=== PATIENT | female | born 1995 | race Caucasian/White ===

== ENCOUNTER 2019-03-10 05:32 | Emergency (ER) | payer OTHER ==
[~2019-03-10] VITALS: Ht 160 cm; Wt 54.0 kg
[~2019-03-10 05:32] MED LIST: BIRTH CONTROL; DOCU100 PO; Flagyl500 MG PO; HYDR1TAB94 PO; IBUP600 PO; IBUP800 PO; METO25ER PO; Percocet 5-3251 EACH PO; Prednisone20 MG PO; Protonix40 MG PO; SIME80CH PO; Sprintec1 EACH PO; TRAM50 PO
[2019-03-10] MEDS ORDERED: METOPROLOL PO (05:57)
[2019-03-10 06:01] LABS: BASOPHILS ABSOLUTE AUTO 0.04 K/mm3 (0.00-0.23); BASOPHILS PERCENT AUTO 1 % (0-2); EOSINOPHILS ABSOLUTE AUTO 0.09 K/mm3 (0.00-0.68); EOSINOPHILS PERCENT AUTO 1 % (0-6); Hematocrit 43.5 % (33.0-51.0); Hemoglobin 14.6 g/dL (11.5-16.0); IMMATURE GRAN ABSOLUTE AUTO 0.02 K/mm3 (0.00-0.10); IMMATURE GRAN PERCENT AUTO 0 % (0-1); LYMPHOCYTES ABSOLUTE AUTO 2.56 K/mm3 (0.84-5.20); LYMPHOCYTES PERCENT AUTO 36 % (21-46); MONOCYTES ABSOLUTE AUTO 0.55 K/mm3 (0.16-1.47); MONOCYTES PERCENT AUTO 8 % (4-13); Mean Corpuscular HGB 30.3 pg (26.0-34.0); Mean Corpuscular HGB Conc 33.6 g/dL (31.5-36.5); Mean Corpuscular Volume 90 fL (80-100); NEUTROPHILS ABSOLUTE AUTO 3.78 K/mm3 (1.96-9.15); NEUTROPHILS PERCENT AUTO 54 % (41-73); Platelet Count 177 K/mm3 (150-400); RDW Coefficient Variation 11.9 % (11.7-14.2); RDW Standard Deviation 39.2 fL (35.1-46.3); Red Blood Cell Count 4.82 M/mm3 (3.80-5.20); White Blood Cell Count 7.04 K/mm3 (4.00-11.30)
[2019-03-10 06:18] LABS: Alanine Aminotransfer (ALT/SGP 32 U/L (12-78); Albumin, Blood 4.1 g/dL (3.4-5.0); Albumin/Globulin Ratio 1.2 (0.8-1.8); Alk Phos 60 U/L (50-136); Anion Gap 8 mmol/L (6-16); Aspartate Aminotrans (AST/SGOT 32 U/L (12-37); Bilirubin, Total 1.4 mg/dL (0.1-1.0); Blood Urea Nitrogen 8 mg/dL (8-24); CO2, Blood 25 mmol/L (21-32); Calcium, Blood 9.2 mg/dL (8.5-10.1); Chloride, Blood 108 mmol/L (98-108); Creatinine, Blood 0.67 mg/dL (0.40-1.00); Globulin, Blood 3.5 g/dL (2.2-4.0); Glomerular Filtration Rate >60 (60-); Glucose, Blood 127 mg/dL (70-99); Potassium, Blood 3.7 mmol/L (3.5-5.5); Sodium, Blood 141 mmol/L (136-145); Total Protein, Blood 7.6 g/dL (6.4-8.2)
[2019-03-10 06:46] LABS: Source, Urine Clean Catch
[2019-03-10 07:03] LABS: Appearance, Urine Clear (Clear); Bilirubin, Urine Neg (Neg); Blood, Urine Neg (Neg); Color, Urine Yellow (P-Yellow); Glucose Qualitative, Urine Neg (Neg); Ketones, Urine Neg (Neg); Leukocyte Esterase, Urine Neg (Neg); Nitrite, Urine Neg (Neg); Protein, Urine Neg (Neg); Urobilinogen, Urine NORM (Normal)
[2019-03-10] MEDS ORDERED: Percocet 5-3251 EACH PO (09:05)
[2019-04-21] MEDS ORDERED: OXYC5 PO (09:48)
== END 2019-03-10 09:19 | disposition home or self-care (01) ==
LOC: ER 05:32
PROVIDERS: Emergency Medicine
DX: R10.2 Pelvic and perineal pain (principal); I10 Essential (primary) hypertension; I49.9 Cardiac arrhythmia, unspecified; Z90.710 Acquired absence of both cervix and uterus; Z79.899 Other long term (current) drug therapy; Z88.8 Allergy status to other drugs, medicaments and biological substances
CPT/HCPCS: 36415; 72193; 76830; 76856; 80053; 81003; 85025; 96361; 96374-59; 96375; 96376; 99284-25; J1170; J2405; J7030; Q9967

== ENCOUNTER 2019-04-25 09:58 | Day surgery (SDC) | payer BC, OTHER ==
[~2019-04-25] VITALS: Ht 160 cm; Wt 51.7 kg
[~2019-04-25 09:58] MED LIST changes: +METOPROLOL PO; +OXYC5 PO
--- NOTE | 2019-04-25 10:24 | NUR ---
Ambulatory in Day Surgery History, Chart, Medications and Allergies reviewed before start of procedure.Lungs clear T/O to Auscultation. Patient confirms NPO status and agrees with scheduled surgery. Patient reports completing Chlorhexadine shower X2 prior to admission to hospital.Surgical site prepped with 2% Chlorhexidine cloth wipe. Patient States Post-Procedure ride home has been arranged.
--- NOTE | 2019-04-25 15:30 | NUR ---
Patient up to Ambulate independently. Gait steady. STERI STRIP ABOVE UMBILICUS WITH SMALL AMOUNT OF SANGINOUS DRAINAGE-BANDAIDE PLACED. Discharge instructions reviewed with patient. Patient verbalizes understanding. Copy given to patient to take home-DISCHARGE INSTRUCTIONS GIVEN BY ARTURO PINA RN. PT VERBALIZED AND DEMONSTRATED UNDERSTANGING OF INSTRUCTIONS. PT DIACHARGED TO HOME, OUT VIA WHEELCHAIR WITH BELONGINGS, RX, AND DISHARGE INSTRUCTIONS ON HAND.
--- NOTE | 2019-04-26 14:00 | NUR ---
04/26/19 1400 Eusebia Quigley VERIFICATIONS: EDIT CHART.
== END 2019-04-25 15:30 | disposition home or self-care (01) ==
LOC: ORSCMMR 09:58 → ORD 11:30 → ORSCMMR 11:30
PROVIDERS: Obstetrics & Gynecology
PROC: 0UT04ZZ Resection of Right Ovary, Percutaneous Endoscopic Approach (ICD-10-PCS; principal; 2019-04-25 11:30)
DX: N80.3 Endometriosis of pelvic peritoneum (principal); N83.201 Unspecified ovarian cyst, right side; R10.2 Pelvic and perineal pain; K66.0 Peritoneal adhesions (postprocedural) (postinfection); Z79.899 Other long term (current) drug therapy
CPT/HCPCS: 88305; A9270-GY; J0461; J1100; J1885; J2250; J2370; J2405; J2704; J2710; J3010; J7120

== ENCOUNTER 2020-07-24 14:43 | Emergency (ER) | payer OTHER ==
[~2020-07-24] VITALS: Ht 160 cm; Wt 52.2 kg
[~2020-07-24 14:43] MED LIST changes: -METO25ER PO
[2020-07-24] MEDS ORDERED: GLYBURIDE-METF1 EACH PO (15:05)
[2020-07-24] MEDS ORDERED: SEMGLEE100 UNIT/1 SC (15:06)
[2020-07-24 15:08] LABS: BASOPHILS ABSOLUTE AUTO 0.05 K/mm3 (0.00-0.23); BASOPHILS PERCENT AUTO 1 % (0-2); EOSINOPHILS ABSOLUTE AUTO 0.49 K/mm3 (0.00-0.68); EOSINOPHILS PERCENT AUTO 8 % (0-6); Hematocrit 42.3 % (33.0-51.0); Hemoglobin 13.8 g/dL (11.5-16.0); IMMATURE GRAN ABSOLUTE AUTO 0.02 K/mm3 (0.00-0.10); IMMATURE GRAN PERCENT AUTO 0 % (0-1); LYMPHOCYTES ABSOLUTE AUTO 1.58 K/mm3 (0.84-5.20); LYMPHOCYTES PERCENT AUTO 26 % (21-46); MONOCYTES ABSOLUTE AUTO 0.47 K/mm3 (0.16-1.47); MONOCYTES PERCENT AUTO 8 % (4-13); Mean Corpuscular HGB 29.1 pg (26.0-34.0); Mean Corpuscular HGB Conc 32.6 g/dL (31.5-36.5); Mean Corpuscular Volume 89 fL (80-100); NEUTROPHILS PERCENT AUTO 57 % (41-73); Platelet Count 188 K/mm3 (150-400); RDW Coefficient Variation 11.9 % (11.7-14.2); RDW Standard Deviation 38.8 fL (35.1-46.3); Red Blood Cell Count 4.75 M/mm3 (3.80-5.20); White Blood Cell Count 6.01 K/mm3 (4.00-11.30)
[2020-07-24 15:19] LABS: Base Excess Venous -0.4 mmol/L; Bicarbonate Venous 23.6 mmol/L (24.0-30.0); PCO2 Venous 42.2 mmHg (38-42); PO2 Venous 46.2 mmHg (38-42); pH Blood Venous 7.38 (7.34-7.37)
[2020-07-24 15:31] LABS: Alanine Aminotransfer (ALT/SGP 35 U/L (12-78); Albumin, Blood 3.7 g/dL (3.4-5.0); Albumin/Globulin Ratio 1.1 (0.8-1.8); Alk Phos 68 U/L (50-136); Anion Gap 8 mmol/L (6-16); Aspartate Aminotrans (AST/SGOT 39 U/L (12-37); Bilirubin, Total 1.1 mg/dL (0.1-1.0); Blood Urea Nitrogen 15 mg/dL (8-24); Bun/Creatinine Ratio 30.1 (12.0-20.0); CO2, Blood 25 mmol/L (21-32); Calcium, Blood 8.6 mg/dL (8.5-10.1); Chloride, Blood 100 mmol/L (98-108); Globulin, Blood 3.4 g/dL (2.2-4.0); Glomerular Filtration Rate >60 (60-); Glucose, Blood 543 mg/dL (70-99); Potassium, Blood 3.8 mmol/L (3.5-5.5); Sodium, Blood 133 mmol/L (136-145); Total Protein, Blood 7.1 g/dL (6.4-8.2)
[2020-07-24] MEDS ORDERED: METO25ER PO (15:44)
[2020-07-24] MEDS ORDERED: ESCI20 PO (15:45)
[2020-07-24] MEDS ORDERED: PANT40 PO (15:45)
[2020-07-24 15:48] LABS: Source, Urine Clean Catch
[2020-07-24 16:15] LABS: Appearance, Urine Clear (Clear); Bilirubin, Urine Neg (Neg); Blood, Urine Neg (Neg); Glucose Qualitative, Urine 4+ (Neg); Ketones, Urine Neg (Neg); Leukocyte Esterase, Urine Neg (Neg); Nitrite, Urine Neg (Neg); Protein, Urine Neg (Neg); Urobilinogen, Urine NORM (Normal)
[2020-07-24 16:28] LABS: Color, Urine Pale Yellow (P-Yellow)
== END 2020-07-24 20:26 | disposition home or self-care (01) ==
LOC: ER 14:43
PROVIDERS: Physician Assistant
DX: E10.65 Type 1 diabetes mellitus with hyperglycemia (principal); I10 Essential (primary) hypertension; Z88.8 Allergy status to other drugs, medicaments and biological substances; Z79.899 Other long term (current) drug therapy
CPT/HCPCS: 36415; 71046; 74177; 76705; 80053; 81003; 82010; 82803; 82947; 85025; 93005; 93010; 96361; 96374-59; 96375; 99284-25; J1200; J1815; J2405; J2765; J7030; Q9967

== ENCOUNTER 2020-09-11 17:54 | Emergency (ER) | payer OTHER ==
[~2020-09-11] VITALS: Ht 160 cm; Wt 54.0 kg
[~2020-09-11 17:54] MED LIST changes: +ESCI20 PO; +GLYBURIDE-METF1 EACH PO; +METO25ER PO; +PANT40 PO; +SEMGLEE100 UNIT/1 SC
[2020-09-11 19:12] LABS: BASOPHILS ABSOLUTE AUTO 0.04 K/mm3 (0.00-0.23); BASOPHILS PERCENT AUTO 1 % (0-2); EOSINOPHILS ABSOLUTE AUTO 0.11 K/mm3 (0.00-0.68); EOSINOPHILS PERCENT AUTO 2 % (0-6); Hematocrit 42.3 % (33.0-51.0); Hemoglobin 13.8 g/dL (11.5-16.0); IMMATURE GRAN ABSOLUTE AUTO 0.02 K/mm3 (0.00-0.10); IMMATURE GRAN PERCENT AUTO 0 % (0-1); LYMPHOCYTES ABSOLUTE AUTO 2.62 K/mm3 (0.84-5.20); LYMPHOCYTES PERCENT AUTO 37 % (21-46); MONOCYTES ABSOLUTE AUTO 0.45 K/mm3 (0.16-1.47); MONOCYTES PERCENT AUTO 6 % (4-13); Mean Corpuscular HGB 29.6 pg (26.0-34.0); Mean Corpuscular HGB Conc 32.6 g/dL (31.5-36.5); Mean Corpuscular Volume 91 fL (80-100); Mean Platelet Volume 10.8 fL (9.1-12.4); NEUTROPHILS ABSOLUTE AUTO 3.89 K/mm3 (1.96-9.15); NEUTROPHILS PERCENT AUTO 55 % (41-73); Platelet Count 208 K/mm3 (150-400); RDW Coefficient Variation 11.8 % (11.7-14.2); Red Blood Cell Count 4.66 M/mm3 (3.80-5.20); White Blood Cell Count 7.13 K/mm3 (4.00-11.30)
[2020-09-11 19:36] LABS: Alanine Aminotransfer (ALT/SGP 41 U/L (12-78); Albumin, Blood 3.9 g/dL (3.4-5.0); Albumin/Globulin Ratio 1.1 (0.8-1.8); Alk Phos 61 U/L (50-136); Anion Gap 5 mmol/L (6-16); Aspartate Aminotrans (AST/SGOT 27 U/L (12-37); Bilirubin, Total 0.9 mg/dL (0.1-1.0); Blood Urea Nitrogen 18 mg/dL (8-24); Bun/Creatinine Ratio 22.8 (12.0-20.0); CO2, Blood 28 mmol/L (21-32); Chloride, Blood 108 mmol/L (98-108); Creatinine, Blood 0.79 mg/dL (0.40-1.00); Globulin, Blood 3.7 g/dL (2.2-4.0); Glomerular Filtration Rate >60 (60-); Glucose, Blood 90 mg/dL (70-99); Potassium, Blood 3.5 mmol/L (3.5-5.5); Sodium, Blood 141 mmol/L (136-145); Total Protein, Blood 7.6 g/dL (6.4-8.2)
== END 2020-09-11 22:18 | disposition left against medical advice (07) ==
LOC: ER 17:54
PROVIDERS: Physician Assistant
DX: E11.9 Type 2 diabetes mellitus without complications (principal)
CPT/HCPCS: 36415; 80053; 82947; 85025; 99283; J1815

== ENCOUNTER → 2020-10-25 | Outpatient (CLI) | payer OTHER ==
[2020-10-25 15:39] LABS: Alanine Aminotransfer (ALT/SGP 39 U/L (12-78); Albumin/Globulin Ratio 1.2 (0.8-1.8); Alk Phos 53 U/L (50-136); Anion Gap 3 mmol/L (6-16); Aspartate Aminotrans (AST/SGOT 21 U/L (12-37); Bilirubin, Total 1.3 mg/dL (0.1-1.0); Blood Urea Nitrogen 14 mg/dL (8-24); Bun/Creatinine Ratio 21.6 (12.0-20.0); CO2, Blood 29 mmol/L (21-32); Chloride, Blood 109 mmol/L (98-108); Creatinine, Blood 0.65 mg/dL (0.40-1.00); Globulin, Blood 3.4 g/dL (2.2-4.0); Glomerular Filtration Rate >60 (60-); Glucose, Blood 71 mg/dL (70-99); Potassium, Blood 3.7 mmol/L (3.5-5.5); Sodium, Blood 141 mmol/L (136-145); Total Protein, Blood 7.4 g/dL (6.4-8.2)
== END | disposition home or self-care (01) ==
LOC: LAB 13:05 → LAB SHORT 13:05
PROVIDERS: Family Medicine
DX: E11.9 Type 2 diabetes mellitus without complications (principal)
CPT/HCPCS: 80053; 83036

== ENCOUNTER → 2020-11-14 | Outpatient (CLI) | payer OTHER | END | disposition home or self-care (01) | LOC: LAB SHORT 10:39 | DX: R53.83 Other fatigue (principal) | CPT/HCPCS: 84443 ==

== ENCOUNTER 2020-11-28 08:19 | Emergency (ER) | payer OTHER ==
[~2020-11-28] VITALS: Ht 160 cm; Wt 54.4 kg
[2020-11-28 09:23] LABS: BASOPHILS ABSOLUTE AUTO 0.03 K/mm3 (0.00-0.23); BASOPHILS PERCENT AUTO 1 % (0-2); EOSINOPHILS ABSOLUTE AUTO 0.09 K/mm3 (0.00-0.68); EOSINOPHILS PERCENT AUTO 2 % (0-6); Hematocrit 44.1 % (33.0-51.0); Hemoglobin 14.3 g/dL (11.5-16.0); IMMATURE GRAN PERCENT AUTO 0 % (0-1); LYMPHOCYTES ABSOLUTE AUTO 1.92 K/mm3 (0.84-5.20); LYMPHOCYTES PERCENT AUTO 42 % (21-46); MONOCYTES ABSOLUTE AUTO 0.32 K/mm3 (0.16-1.47); MONOCYTES PERCENT AUTO 7 % (4-13); Mean Corpuscular HGB 28.6 pg (26.0-34.0); Mean Corpuscular HGB Conc 32.4 g/dL (31.5-36.5); Mean Corpuscular Volume 88 fL (80-100); Mean Platelet Volume 11.5 fL (9.1-12.4); NEUTROPHILS ABSOLUTE AUTO 2.26 K/mm3 (1.96-9.15); NEUTROPHILS PERCENT AUTO 49 % (41-73); Platelet Count 172 K/mm3 (150-400); RDW Coefficient Variation 11.8 % (11.7-14.2); White Blood Cell Count 4.62 K/mm3 (4.00-11.30)
[2020-11-28 09:48] LABS: Alanine Aminotransfer (ALT/SGP 32 U/L (12-78); Albumin, Blood 3.9 g/dL (3.4-5.0); Albumin/Globulin Ratio 1.1 (0.8-1.8); Alk Phos 53 U/L (50-136); Anion Gap 4 mmol/L (6-16); Aspartate Aminotrans (AST/SGOT 19 U/L (12-37); Bilirubin, Total 1.4 mg/dL (0.1-1.0); Blood Urea Nitrogen 13 mg/dL (8-24); Bun/Creatinine Ratio 18.4 (12.0-20.0); CO2, Blood 28 mmol/L (21-32); Calcium, Blood 8.7 mg/dL (8.5-10.1); Chloride, Blood 107 mmol/L (98-108); Creatinine, Blood 0.71 mg/dL (0.40-1.00); Globulin, Blood 3.5 g/dL (2.2-4.0); Glomerular Filtration Rate >60 (60-); Glucose, Blood 165 mg/dL (70-99); Sodium, Blood 139 mmol/L (136-145); Total Protein, Blood 7.4 g/dL (6.4-8.2)
== END 2020-11-28 10:25 | disposition home or self-care (01) ==
LOC: ER 08:19
PROVIDERS: Emergency Medicine
DX: B34.9 Viral infection, unspecified (principal); I10 Essential (primary) hypertension; E11.9 Type 2 diabetes mellitus without complications; Z79.4 Long term (current) use of insulin; Z79.899 Other long term (current) drug therapy
CPT/HCPCS: 36415; 80053; 82947; 83690; 85025; 99283

== ENCOUNTER → 2021-01-18 | Outpatient (CLI) | payer OTHER ==
[2021-01-19 14:19] LABS: Candida species (DNA Probe) Negative (NEGATIVE); G. vaginalis (DNA Probe) Positive (NEGATIVE); T. vaginalis (DNA Probe) Negative (NEGATIVE)
== END | disposition home or self-care (01) ==
LOC: LAB SHORT 11:15 → LAB 11:15
PROVIDERS: Obstetrics & Gynecology
DX: R10.2 Pelvic and perineal pain (principal)
CPT/HCPCS: 87480; 87510; 87660

== ENCOUNTER → 2022-02-26 | Outpatient (CLI) | payer OTHER | END | disposition home or self-care (01) | LOC: LAB 11:31 → LAB SHORT 11:31 | DX: N39.0 Urinary tract infection, site not specified (principal) | CPT/HCPCS: 87086 ==

== ENCOUNTER 2022-05-25 07:21 | Emergency (ER) | payer OTHER ==
[~2022-05-25] VITALS: Ht 160 cm; Wt 54.4 kg
[2022-05-25] MEDS ORDERED: BUPR75 (08:52)
[2022-05-25] MEDS ORDERED: NOVOLOG100 UNIT/3 SC (08:52)
[2022-05-25 09:33] LABS: Source, Urine Clean Catch
[2022-05-25 09:46] LABS: BASOPHILS ABSOLUTE AUTO 0.02 K/mm3 (0.00-0.23); BASOPHILS PERCENT AUTO 1 % (0-2); EOSINOPHILS ABSOLUTE AUTO 0.01 K/mm3 (0.00-0.68); EOSINOPHILS PERCENT AUTO 0 % (0-6); Hematocrit 46.8 % (33.0-51.0); Hemoglobin 15.6 g/dL (11.5-16.0); IMMATURE GRAN ABSOLUTE AUTO 0.01 K/mm3 (0.00-0.10); IMMATURE GRAN PERCENT AUTO 0 % (0-1); LYMPHOCYTES ABSOLUTE AUTO 1.02 K/mm3 (0.84-5.20); LYMPHOCYTES PERCENT AUTO 24 % (21-46); MONOCYTES ABSOLUTE AUTO 0.59 K/mm3 (0.16-1.47); MONOCYTES PERCENT AUTO 14 % (4-13); Mean Corpuscular HGB 28.7 pg (26.0-34.0); Mean Corpuscular HGB Conc 33.3 g/dL (31.5-36.5); Mean Corpuscular Volume 86 fL (80-100); Mean Platelet Volume 11.2 fL (9.1-12.4); NEUTROPHILS ABSOLUTE AUTO 2.61 K/mm3 (1.96-9.15); NEUTROPHILS PERCENT AUTO 61 % (41-73); Platelet Count 127 K/mm3 (150-400); RDW Standard Deviation 37.9 fL (35.1-46.3); Red Blood Cell Count 5.43 M/mm3 (3.80-5.20); White Blood Cell Count 4.26 K/mm3 (4.00-11.30)
[2022-05-25 09:55] LABS: Bilirubin, Urine Neg (Neg); Blood, Urine Neg (Neg); Glucose Qualitative, Urine 4+ (Neg); Ketones, Urine 4+ (Neg); Leukocyte Esterase, Urine Neg (Neg); Nitrite, Urine Neg (Neg); Protein, Urine 1+ (Neg); Urobilinogen, Urine NORM (Normal)
[2022-05-25 10:00] LABS: Appearance, Urine Clear (Clear); Color, Urine Yellow (P-Yellow)
[2022-05-25 10:11] LABS: Albumin, Blood 3.9 g/dL (3.4-5.0); Bun/Creatinine Ratio 19.7 (12.0-20.0); Calcium, Blood 8.8 mg/dL (8.5-10.1); Creatinine, Blood 0.71 mg/dL (0.40-1.00); Globulin, Blood 3.9 g/dL (2.2-4.0); Potassium, Blood 3.8 mmol/L (3.5-5.5); Total Protein, Blood 7.8 g/dL (6.4-8.2)
[2022-05-25 12:01] LABS: Influenza B, PCR NEGATIVE (NEGATIVE); Resp Syncytial Virus, PCR NEGATIVE (NEGATIVE); SARS-Cov-2 (COVID-19) PCR, MMC NEGATIVE (NEGATIVE)
[2022-05-25 12:05] LABS: Influenza A, PCR POSITIVE (NEGATIVE)
[2022-05-25] MEDS ORDERED: Tylenol W/Code120 ML PO (13:15)
[2022-05-25] MEDS ORDERED: ONDA4ODT MM (13:15)
== END 2022-05-25 13:50 | disposition home or self-care (01) ==
LOC: ER 07:21
PROVIDERS: Physician Assistant
DX: J10.1 Influenza due to other identified influenza virus with other respiratory manifestations (principal); I10 Essential (primary) hypertension; E10.9 Type 1 diabetes mellitus without complications; Z88.8 Allergy status to other drugs, medicaments and biological substances; Z79.4 Long term (current) use of insulin; Z20.822 Contact with and (suspected) exposure to COVID-19
CPT/HCPCS: 0241U; 36415; 71046; 80053; 82947; 83690; 85025; A9270; J1815; J1885; J2405; J7030; J7120

== ENCOUNTER 2023-05-24 00:14 | Emergency (ER) | payer OTHER ==
[~2023-05-24] VITALS: Ht 160 cm; Wt 47.2 kg
[~2023-05-24 00:14] MED LIST changes: +Acetaminophen325 M1 PO; +BUPR75; +FLUT.05NI; +NOVOLOG100 UNIT/3 SC; +ONDA4ODT MM; +Tylenol W/Code120 ML PO
[2023-05-24 00:47] LABS: Source, Urine Clean Catch
[2023-05-24 00:51] LABS: Bilirubin, Urine Neg (Neg); Blood, Urine Neg (Neg); Glucose Qualitative, Urine 4+ (Neg); Ketones, Urine 3+ (Neg); Leukocyte Esterase, Urine 3+ (Neg); Nitrite, Urine Neg (Neg); Protein, Urine Neg (Neg); Urobilinogen, Urine NORM (Normal); pH, Urine 6.5 (5.0-8.0)
[2023-05-24 01:14] LABS: Appearance, Urine Hazy (Clear); Color, Urine Pale Yellow (P-Yellow)
[2023-05-24 01:15] LABS: Bacteria Few /hpf; Red Blood Cells, Urine 0-2 /hpf (0-2); Squamous Epithelial Cells Few /hpf (Few)
[2023-05-24 05:07] LABS: Candida species (DNA Probe) Negative (NEGATIVE); G. vaginalis (DNA Probe) Positive (NEGATIVE); T. vaginalis (DNA Probe) Negative (NEGATIVE)
[2023-05-24 05:12] VITALS: BP 113/65
[2023-05-24] MEDS ORDERED: CEPH500 PO (05:41)
[2023-05-24] MEDS ORDERED: METR500 PO (05:41)
[2023-05-25 23:09] LABS: CHLAMYDIA TRACHOMATIS, NAA Negative (Negative)
== END 2023-05-24 05:58 | disposition home or self-care (01) ==
LOC: ER 00:14
PROVIDERS: Student in an Organized Health Care Education/Training Program
DX: N76.0 Acute vaginitis (principal); I10 Essential (primary) hypertension; E10.9 Type 1 diabetes mellitus without complications; G43.909 Migraine, unspecified, not intractable, without status migrainosus; Z79.899 Other long term (current) drug therapy; Z88.8 Allergy status to other drugs, medicaments and biological substances
CPT/HCPCS: 81001; 87086; 87480; 87491; 87510; 87591; 87660; 99283

== ENCOUNTER → 2023-06-15 | Outpatient (CLI) | payer OTHER ==
[~2023-06-15] MED LIST changes: +CEPH500 PO; +METR500 PO
== END | disposition home or self-care (01) ==
LOC: LAB 14:58 → LAB SHORT 14:58
DX: J02.9 Acute pharyngitis, unspecified (principal)
CPT/HCPCS: 87081

== ENCOUNTER → 2023-06-22 | Outpatient (CLI) | payer OTHER ==
[2023-06-22 16:05] LABS: Candida species (DNA Probe) Positive (NEGATIVE); G. vaginalis (DNA Probe) Negative (NEGATIVE); T. vaginalis (DNA Probe) Negative (NEGATIVE)
== END | disposition home or self-care (01) ==
LOC: LAB SHORT 10:51 → LAB 10:51
PROVIDERS: Advanced Practice Midwife
DX: N76.0 Acute vaginitis (principal)
CPT/HCPCS: 87480; 87510; 87660

== ENCOUNTER 2023-07-23 07:52 | Emergency (ER) | payer OTHER ==
[~2023-07-23] VITALS: Ht 160 cm; Wt 56.2 kg
[2023-07-23 09:42] LABS: BASOPHILS ABSOLUTE AUTO 0.06 K/mm3 (0.00-0.23); BASOPHILS PERCENT AUTO 1 % (0-2); EOSINOPHILS ABSOLUTE AUTO 0.19 K/mm3 (0.00-0.68); EOSINOPHILS PERCENT AUTO 3 % (0-6); Hematocrit 43.9 % (33.0-51.0); IMMATURE GRAN ABSOLUTE AUTO 0.01 K/mm3 (0.00-0.10); IMMATURE GRAN PERCENT AUTO 0 % (0-1); LYMPHOCYTES ABSOLUTE AUTO 2.33 K/mm3 (0.84-5.20); LYMPHOCYTES PERCENT AUTO 39 % (21-46); MONOCYTES ABSOLUTE AUTO 0.46 K/mm3 (0.16-1.47); MONOCYTES PERCENT AUTO 8 % (4-13); Mean Corpuscular HGB 30.7 pg (26.0-34.0); Mean Corpuscular HGB Conc 34.2 g/dL (31.5-36.5); Mean Corpuscular Volume 90 fL (80-100); Mean Platelet Volume 10.7 fL (9.1-12.4); NEUTROPHILS ABSOLUTE AUTO 2.91 K/mm3 (1.96-9.15); NEUTROPHILS PERCENT AUTO 49 % (41-73); Platelet Count 245 K/mm3 (150-400); RDW Coefficient Variation 12.4 % (11.7-14.2); RDW Standard Deviation 40.7 fL (35.1-46.3); Red Blood Cell Count 4.88 M/mm3 (3.80-5.20); White Blood Cell Count 5.96 K/mm3 (4.00-11.30)
[2023-07-23 10:18] LABS: Albumin, Blood 3.7 g/dL (3.4-5.0); Albumin/Globulin Ratio 0.9 (0.8-1.8); Beta-hydroxybutyrate 5.2 mg/dL (0.2-2.8); Calcium, Blood 9.6 mg/dL (8.5-10.1); Creatinine, Blood 0.54 mg/dL (0.40-1.00); Potassium, Blood 3.6 mmol/L (3.5-5.5); Total Protein, Blood 7.7 g/dL (6.4-8.2)
[2023-07-23 10:30] VITALS: BP 123/84
[2023-07-23] MEDS ORDERED: ONDA4ODT MM (10:37)
[2023-07-23] MEDS ORDERED: INSULIN GL100 UNIT/4 SC (10:37)
== END 2023-07-23 10:55 | disposition home or self-care (01) ==
LOC: ER 07:52
PROVIDERS: Emergency Medicine
DX: E10.65 Type 1 diabetes mellitus with hyperglycemia (principal); I10 Essential (primary) hypertension; G43.909 Migraine, unspecified, not intractable, without status migrainosus; Z79.899 Other long term (current) drug therapy
CPT/HCPCS: 80053; 82010; 85025; 96361; 96374; 96375; 99284-25; J1885; J2405; J7120

== ENCOUNTER → 2023-07-25 | Outpatient (CLI) | payer OTHER ==
[~2023-07-25] MED LIST changes: +INSULIN GL100 UNIT/4 SC
[2023-07-25 12:05] LABS: BASOPHILS ABSOLUTE AUTO 0.06 K/mm3 (0.00-0.23); BASOPHILS PERCENT AUTO 1 % (0-2); EOSINOPHILS ABSOLUTE AUTO 0.18 K/mm3 (0.00-0.68); EOSINOPHILS PERCENT AUTO 4 % (0-6); Hematocrit 42.8 % (33.0-51.0); Hemoglobin 14.4 g/dL (11.5-16.0); IMMATURE GRAN ABSOLUTE AUTO 0.01 K/mm3 (0.00-0.10); IMMATURE GRAN PERCENT AUTO 0 % (0-1); LYMPHOCYTES ABSOLUTE AUTO 1.71 K/mm3 (0.84-5.20); LYMPHOCYTES PERCENT AUTO 36 % (21-46); MONOCYTES ABSOLUTE AUTO 0.37 K/mm3 (0.16-1.47); MONOCYTES PERCENT AUTO 8 % (4-13); Mean Corpuscular HGB Conc 33.6 g/dL (31.5-36.5); Mean Corpuscular Volume 92 fL (80-100); Mean Platelet Volume 11.1 fL (9.1-12.4); NEUTROPHILS ABSOLUTE AUTO 2.49 K/mm3 (1.96-9.15); NEUTROPHILS PERCENT AUTO 52 % (41-73); Platelet Count 206 K/mm3 (150-400); RDW Coefficient Variation 12.4 % (11.7-14.2); RDW Standard Deviation 42.4 fL (35.1-46.3); Red Blood Cell Count 4.64 M/mm3 (3.80-5.20); White Blood Cell Count 4.82 K/mm3 (4.00-11.30)
[2023-07-25 12:13] LABS: Albumin, Blood 3.6 g/dL (3.4-5.0); Bilirubin, Total 0.9 mg/dL (0.1-1.0); Bun/Creatinine Ratio 30.7 (12.0-20.0); Calcium, Blood 8.6 mg/dL (8.5-10.1); Creatinine, Blood 0.52 mg/dL (0.40-1.00); Globulin, Blood 3.6 g/dL (2.2-4.0); Potassium, Blood 4.3 mmol/L (3.5-5.5); Total Protein, Blood 7.2 g/dL (6.4-8.2)
== END | disposition home or self-care (01) ==
LOC: LAB 10:46 → LAB SHORT 10:46
PROVIDERS: Physician Assistant
DX: R74.01 Elevation of levels of liver transaminase levels (principal)
CPT/HCPCS: 80053; 85025; 85379

== ENCOUNTER 2023-08-07 21:42 | Emergency (ER) | payer OTHER ==
[~2023-08-07] VITALS: Ht 160 cm; Wt 54.4 kg
[2023-08-07 21:48] VITALS: BP 129/79
[2023-08-07] MEDS ORDERED: AMOCLA875 PO (21:56)
== END 2023-08-07 22:13 | disposition home or self-care (01) ==
LOC: ER 21:42
DX: K04.7 Periapical abscess without sinus (principal); E10.9 Type 1 diabetes mellitus without complications; Z88.8 Allergy status to other drugs, medicaments and biological substances
CPT/HCPCS: 64400; 99282-25; A9270

== ENCOUNTER 2023-09-12 01:12 | Emergency (ER) | payer OTHER ==
[~2023-09-12] VITALS: Ht 160 cm; Wt 54.4 kg
[~2023-09-12 01:12] MED LIST changes: +AMOCLA875 PO; +OXAYDO5 M1 PO; +Percocet 10-321 EACH PO
[2023-09-12 01:21] VITALS: BP 125/94
[2023-09-12] MEDS ORDERED: Ketorolac Tromethamine 30mg Vial IM ONE (04:20)
[2023-09-12] MEDS ORDERED: RX Prepack 6 Tabs Oxycodone 5mg UD ONE (04:20)
[2023-09-12] MEDS ORDERED: Dexamethasone Sod Phos 10 MG/ML 1ML VIAL PO ONE (04:20)
[2023-09-12] MEDS ORDERED: Amoxicillin/Clavulanate K 875 MG Tab PO ONE (04:20)
[2023-09-12] MEDS ORDERED: OxyCODONE HCL 5 MG TAB PO ONE (04:20)
[2023-09-12] MEDS ORDERED: AMOCLA875 PO (04:22)
== END 2023-09-12 04:50 | disposition home or self-care (01) ==
LOC: ER 01:12
DX: K04.7 Periapical abscess without sinus (principal); I10 Essential (primary) hypertension; E10.9 Type 1 diabetes mellitus without complications; G43.909 Migraine, unspecified, not intractable, without status migrainosus; Z79.899 Other long term (current) drug therapy; Z88.8 Allergy status to other drugs, medicaments and biological substances
CPT/HCPCS: 96372; 99282-25; A9270; J1100; J1885

== ENCOUNTER 2024-03-24 08:37 | Inpatient (IN) | payer OTHER ==
[~2024-03-24] VITALS: Ht 160 cm; Wt 56.6 kg
[2024-03-24] VITALS (7 sets, daily range): BP systolic 94–110; BP diastolic 59–78
[2024-03-24] MEDS ORDERED: Ondansetron HCl 2 MG / ML 2ML Vial IV ONE (09:20)
[2024-03-24] MEDS ORDERED: NS 1,000 ML IV SCH ×3 (09:20→14:40)
[2024-03-24 09:22] LABS: BASOPHILS ABSOLUTE AUTO 0.05 K/mm3 (0.00-0.23); BASOPHILS PERCENT AUTO 1 % (0-2); EOSINOPHILS ABSOLUTE AUTO 0.07 K/mm3 (0.00-0.68); EOSINOPHILS PERCENT AUTO 1 % (0-6); Hemoglobin 15.1 g/dL (11.5-16.0); IMMATURE GRAN ABSOLUTE AUTO 0.01 K/mm3 (0.00-0.10); IMMATURE GRAN PERCENT AUTO 0 % (0-1); LYMPHOCYTES ABSOLUTE AUTO 1.63 K/mm3 (0.84-5.20); LYMPHOCYTES PERCENT AUTO 27 % (21-46); MONOCYTES ABSOLUTE AUTO 0.36 K/mm3 (0.16-1.47); MONOCYTES PERCENT AUTO 6 % (4-13); Mean Corpuscular HGB 29.4 pg (26.0-34.0); Mean Corpuscular HGB Conc 33.6 g/dL (31.5-36.5); Mean Corpuscular Volume 88 fL (80-100); Mean Platelet Volume 10.9 fL (9.1-12.4); NEUTROPHILS ABSOLUTE AUTO 3.88 K/mm3 (1.96-9.15); NEUTROPHILS PERCENT AUTO 65 % (41-73); Platelet Count 196 K/mm3 (150-400); RDW Coefficient Variation 11.6 % (11.7-14.2); RDW Standard Deviation 37.5 fL (35.1-46.3); Red Blood Cell Count 5.13 M/mm3 (3.80-5.20)
[2024-03-24 09:42] LABS: PCO2 Venous 33.5 mmHg (38-42); pH Blood Venous 7.24 (7.34-7.37)
[2024-03-24 09:43] LABS: Base Excess Venous -12.8 mmol/L; Bicarbonate Venous 15.5 mmol/L (24.0-30.0)
[2024-03-24 09:49] LABS: Albumin, Blood 4.3 g/dL (3.4-5.0); Albumin/Globulin Ratio 1.2 (0.8-1.8); Bilirubin, Total 1.2 mg/dL (0.1-1.0); Bun/Creatinine Ratio 31.7 (12.0-20.0); Calcium, Blood 9.1 mg/dL (8.5-10.1); Creatinine, Blood 0.63 mg/dL (0.40-1.00); Globulin, Blood 3.5 g/dL (2.2-4.0); Potassium, Blood 4.5 mmol/L (3.5-5.5); Total Protein, Blood 7.8 g/dL (6.4-8.2)
[2024-03-24 10:02] LABS: Beta-hydroxybutyrate 54.8 mg/dL (0.2-2.8)
[2024-03-24] MEDS ORDERED: Insulin Human Regular 100 UNIT in NS 100 ML IV SCH ×2 (10:20→15:00)
[2024-03-24] MEDS ORDERED: Lactated Ringer's 1,000 ML IV ONE (10:20)
[2024-03-24] MEDS ORDERED: Potassium Chl 20MEQ/Water100ML 100 ML IV ONE (10:25)
[2024-03-24 10:38] LABS: Source, Urine Clean Catch
[2024-03-24] MEDS ORDERED: Ketorolac Tromethamine 15mg Vial IV ONE (10:40)
[2024-03-24 10:44] LABS: Bilirubin, Urine Neg (Neg); Blood, Urine Neg (Neg); Glucose Qualitative, Urine 4+ (Neg); Ketones, Urine 4+ (Neg); Leukocyte Esterase, Urine Neg (Neg); Nitrite, Urine Neg (Neg); Protein, Urine Neg (Neg); Urobilinogen, Urine NORM (Normal)
[2024-03-24 10:46] LABS: Appearance, Urine Clear (Clear); Color, Urine Yellow (P-Yellow)
[2024-03-24] MEDS ORDERED: D5W-NS 1,000 ML IV SCH (13:25)
[2024-03-24 14:15] LABS: Bun/Creatinine Ratio 26.8 (12.0-20.0); Calcium, Blood 8.3 mg/dL (8.5-10.1); Creatinine, Blood 0.52 mg/dL (0.40-1.00); Potassium, Blood 3.9 mmol/L (3.5-5.5)
[2024-03-24] MEDS ORDERED: D5W-1/2NS KCl 20mEq 1,000 ML IV SCH (14:45)
[2024-03-24] MEDS ORDERED: Ondansetron 4 MG TAB PO PRN (14:50)
[2024-03-24] MEDS ORDERED: Zolpidem Tartrate 10 MG Tab PO PRN (14:50)
[2024-03-24] MEDS ORDERED: Ondansetron HCl 2 MG / ML 2ML Vial IV PRN (14:55)
[2024-03-24] MEDS ORDERED: Acetaminophen 325 MG TABLET PO PRN (14:55)
[2024-03-24] MEDS ORDERED: HUMALOG KW100 UNIT/1 SC (18:13)
[2024-03-24] MEDS ORDERED: NOVOLOG FL100 UNIT/3 SC (18:13)
--- NOTE | 2024-03-24 18:38 | NUR ---
CARLOS WAS BROUGHT TO ICU ROOM 7 FROM EMERGENCY WITH KATARINA RENEE ALONG. D5 1/2NS + 20mEq KCL INFUSING AT 200ML/HR. INSULIN @ 3U/HR. CBG 220, PT DENIES ANY COMPLAINTS AT THIS TIME, DINNER TRAY BROUGHT IN, AT HER SIDE. IV'S IN WANDA. A/C. STATES THAT SHE NEEDS AN "UPGRADE TO HER INSULIN PUMP" BUT INSURANCE HAS DENIED SO SHE HAS BEEN MODIFYING WITH HER INSULIN PENS TO TRY TO GET THROUGH. THE UPDATE HAS TO DO WITH THE COMMUNICATION TO HER DEXCOM.
[2024-03-24 19:08] LABS: Bun/Creatinine Ratio 26.7 (12.0-20.0); Calcium, Blood 7.7 mg/dL (8.5-10.1); Creatinine, Blood 0.49 mg/dL (0.40-1.00)
[2024-03-24] MEDS ORDERED: Famotidine 20 MG Tab PO SCH (21:00)
--- NOTE | 2024-03-24 22:05 | NUR ---
ASSUMPTION OF CARE PT LYING IN BED WITH SIGNIFICANT OTHER IN ROOM. PT IS AWAKE AND ORIENTED. NO SIGNS OF DISTRESS NOTED WITH REGULAR EFFORT OF BREATHING. NO CHEST PAIN, SOB, ABDOMINAL PAIN, NAUSEA, VOMITING REPORTED. HR NSR 70S, BP 110/69. LUNGS CLEAR IN ALL [place]. ABDOMEN IS NON-DISTENDED AND NOT TENDER TO PALPATION- BOWELS SOUNDS PRESENT. PT HAS AN APPETITE. INSULIN INFUSING INTO ONE OF TWO ANTICUBITAL PIVS AT 3 UNITS/KG/HR. D51/2NS W 20MEQ INFUSING AT 200ML/HR IN RIGHT AC. PT LEFT IN ROOM IN BED WITH SIGNIFICANT OTHER PRESENT AND CALL LIGHT WITHIN REACH. REPORT RECEIVED FROM DAY SHIFT NURSE.
[2024-03-24 23:25] LABS: Bun/Creatinine Ratio 21.9 (12.0-20.0); Calcium, Blood 8.2 mg/dL (8.5-10.1); Creatinine, Blood 0.55 mg/dL (0.40-1.00); Potassium, Blood 3.8 mmol/L (3.5-5.5)
[2024-03-25] VITALS (11 sets, daily range): BP systolic 92–110; BP diastolic 61–73
--- NOTE | 2024-03-25 00:01 | NUR ---
UPDATE PROVIDER CALLED WITH MOST RECENT POC AND LAB DRAW GLUCOSE LEVELS, 175 (AT 2330) AND 221 (AT 2230) RESPECTIVELY. PROVIDER WOULD LIKE TO KEEP THE PT ON INSULIN DRIP AT TITRATED RATE AND D51/2NSW W 20MEQ KCL AT 200ML/HR. PROVIDER ALSO ORDERED 40MEQ KCL TO ADDRESS THE 3.8 POTASSIUM LEVEL DRAWN AT 2230 ON 03/24.
[2024-03-25] MEDS ORDERED: Potassium Chloride 20 MEQ TabCR PO ONE (00:25)
[2024-03-25 04:11] LABS: Bun/Creatinine Ratio 17.3 (12.0-20.0); Calcium, Blood 8.3 mg/dL (8.5-10.1); Creatinine, Blood 0.52 mg/dL (0.40-1.00); Potassium, Blood 4.1 mmol/L (3.5-5.5)
--- NOTE | 2024-03-25 07:21 | NUR ---
SHIFT SUMMARY PT LYING IN BED TALKING ON PHONE WITH . PT IS ALERT AND ORIENTED. HR SINUS RHYTHM WITH OCCASIONAL BRADYCARDIC DIPS. BP STABLE WITH MAPS IN LOW 70S. SIGNS OF ADEQUATE DISTAL EXTREMITY AND ORGAN PERFUSION INTACT. RESPIRATIONS ARE UNLABORED, 14/MIN. LUNG SOUNDS ARE CLEAR THROUGHOUT. ABDOMEN IS SOFT AND NON-TENDER WITH ACTIVE BOWEL SOUNDS. PT DENIES NAUSEA/VOMITING. NO URINARY ISSUES PRESENT AND PT AMBULATES WELL TO TOILET WHEN DE-WIRED. D5 1/2 NS W 20MEQ KCL INFUSING INTO LEFT AC AT 200ML/HR. INSULIN IS INFUSING INTO RIGHT AC AT 1.5 UNITS/HR. BOTH IVS DRAW BACK BLOOD.
[2024-03-25 07:32] LABS: Bun/Creatinine Ratio 14.4 (12.0-20.0); Calcium, Blood 8.2 mg/dL (8.5-10.1); Creatinine, Blood 0.49 mg/dL (0.40-1.00); Potassium, Blood 4.3 mmol/L (3.5-5.5)
[2024-03-25] MEDS ORDERED: Enoxaparin 40 MG/0.4 ML SYR SC SCH (09:00)
[2024-03-25] MEDS ORDERED: Sodium Chloride 0.45% 1,000 ML IV SCH (10:10)
[2024-03-25 12:23] LABS: Bun/Creatinine Ratio 10.9 (12.0-20.0); Calcium, Blood 8.7 mg/dL (8.5-10.1); Creatinine, Blood 0.46 mg/dL (0.40-1.00); Potassium, Blood 4.2 mmol/L (3.5-5.5)
[2024-03-25] MEDS ORDERED: Calcium Carbonate 500 MG Tab Chew PO PRN (12:50)
[2024-03-25] MEDS ORDERED: Insulin Glargine-Yfgn 100 Unit/mL 3 ML SYR SC SCH ×2 (13:00→20:00)
--- NOTE | 2024-03-25 14:55 | NUR ---
CARLOS HAS BEEN TRANSITIONED FROM IV INSULIN DRIP TO LONG ACTING AND SLIDING SCALE COVERAGE. SHE IS NO LONGER ON THE MONITOR AND SHE IS ABLE TO MAKE ALL HER NEEDS KNOWN.
[2024-03-25] MEDS ORDERED: Insulin Human Lispro 100 Units/ML 3ML Syringe SC SCH (18:00)
--- NOTE | 2024-03-25 18:26 | NUR ---
SHIFT SUMMARY: PT TX FROM ICU TO ROOM 355. REPORT RECEIVED FROM IVANIA BRAY. PT ARRIVED VIA WHEELCHAIR. A/O X 4, IND PLEASANT AND COOPERATIVE WITH CARE. PT DENIES PAIN, NEEDS. PT ORIENTED TO UNIT AND CALL LIGHT. PT REPORTS HAVING ALL HER BELONGINGS SHE BROUGHT TO ICU WITH HER. SHE HAS HER MOTHER IN LAW WITH HER. PT REPORTS SHE ALREADY ATE DINNER.
[2024-03-25] MEDS ORDERED: Insulin Regular 100 UNIT/ML 10ML Vial SC SCH (21:00)
[2024-03-26 03:47] VITALS: BP 90/56
--- NOTE | 2024-03-26 05:22 | NUR ---
NO ACUTE CHANGES OVERNIGHT. PT DENIES CHEST PAIN OR PRESSURE, INDEPENDENT IN THE ROOM, HS CBG 285, TREATED PER EMAR. PT IS ABLE TO MAKE NEEDS KNOWN. LAST SBP 90, PT SLEEPING. NON SYMPTOMATIC. SPOUSE AT BEDSIDE.
[2024-03-26 06:01] VITALS: BP 102/66
[2024-03-26 07:23] VITALS: BP 102/67
[2024-03-26] MEDS ORDERED: Sennosides 8.6 MG Tab PO SCH (10:45)
[2024-03-26] MEDS ORDERED: INSULANPEN SC (12:27)
[2024-03-26] MEDS ORDERED: SENN187 PO (12:27)
--- NOTE | 2024-03-26 13:39 | NUR ---
PT DISCHARGED WITH DC INSTRUCTIONS. STATES SHE HAS ENOUGH HUMALOG AND GLARGENE UNTIL THURSDAY TO BE ABLE TO FISH[facility] TRAP RX AT [facility]. WHEELCHAIR OUT TO PRIVATE CAR FOR DC HOME
== END 2024-03-26 13:03 | disposition home or self-care (01) | DRG 639 ==
LOC: ER 08:37 → ERHOLD 08:38 → ICUE 14:24 → ERHOLD 14:24 → ICUE 14:49 → ERHOLD 14:49 → ICUE 14:49 → MEDS 03-25 18:00
PROVIDERS: Student in an Organized Health Care Education/Training Program; ADMIT Internal Medicine
DX: E10.10 Type 1 diabetes mellitus with ketoacidosis without coma (principal); I10 Essential (primary) hypertension; G43.909 Migraine, unspecified, not intractable, without status migrainosus; Z79.4 Long term (current) use of insulin; Z88.8 Allergy status to other drugs, medicaments and biological substances; Z79.899 Other long term (current) drug therapy; Z98.890 Other specified postprocedural states; Z98.51 Tubal ligation status; Z90.710 Acquired absence of both cervix and uterus
CPT/HCPCS: 36415; 71046; 80048; 80053; 81003; 82010; 82803; 82947; 83690; 84703; 85025; 93005; 93010; 96361; 96365; 96366; 96375; 99285-25; A9270; G0378; J1650; J1815; J1885; J2405; J3480; J7030; J7042

== ENCOUNTER → 2024-05-10 | Outpatient (CLI) | payer OTHER ==
[~2024-05-10] MED LIST changes: +HUMALOG KW100 UNIT/1 SC; +INSULANPEN SC; +NOVOLOG FL100 UNIT/3 SC; +SENN187 PO
[2024-05-10 10:52] LABS: BASOPHILS ABSOLUTE AUTO 0.05 K/mm3 (0.00-0.23); BASOPHILS PERCENT AUTO 1 % (0-2); EOSINOPHILS ABSOLUTE AUTO 0.17 K/mm3 (0.00-0.68); EOSINOPHILS PERCENT AUTO 3 % (0-6); Hematocrit 42.2 % (33.0-51.0); Hemoglobin 14.5 g/dL (11.5-16.0); IMMATURE GRAN ABSOLUTE AUTO 0.01 K/mm3 (0.00-0.10); IMMATURE GRAN PERCENT AUTO 0 % (0-1); LYMPHOCYTES PERCENT AUTO 32 % (21-46); MONOCYTES PERCENT AUTO 6 % (4-13); Mean Corpuscular HGB 28.9 pg (26.0-34.0); Mean Corpuscular HGB Conc 34.4 g/dL (31.5-36.5); Mean Corpuscular Volume 84 fL (80-100); Mean Platelet Volume 11.1 fL (9.1-12.4); NEUTROPHILS ABSOLUTE AUTO 3.84 K/mm3 (1.96-9.15); NEUTROPHILS PERCENT AUTO 58 % (41-73); Platelet Count 204 K/mm3 (150-400); RDW Coefficient Variation 11.7 % (11.7-14.2); RDW Standard Deviation 35.6 fL (35.1-46.3); Red Blood Cell Count 5.01 M/mm3 (3.80-5.20); White Blood Cell Count 6.57 K/mm3 (4.00-11.30)
[2024-05-10 11:02] LABS: Albumin, Blood 3.8 g/dL (3.4-5.0); Albumin/Globulin Ratio 1.1 (0.8-1.8); Bilirubin, Total 1.3 mg/dL (0.1-1.0); Bun/Creatinine Ratio 12.4 (12.0-20.0); Calcium, Blood 8.8 mg/dL (8.5-10.1); Creatinine, Blood 0.89 mg/dL (0.40-1.00); Globulin, Blood 3.6 g/dL (2.2-4.0); Magnesium, Blood 1.4 mg/dL (1.6-2.4); Total Protein, Blood 7.4 g/dL (6.4-8.2)
== END ==
LOC: LAB 10:45 → LAB SHORT 10:45
PROVIDERS: Chiropractor
DX: E10.10 Type 1 diabetes mellitus with ketoacidosis without coma (principal)
CPT/HCPCS: 80053; 82010; 83735; 85025

== ENCOUNTER 2024-05-23 11:54 | Emergency (ER) | payer OTHER ==
[~2024-05-23] VITALS: Ht 160 cm; Wt 54.4 kg
[2024-05-23] MEDS ORDERED: NS 1,000 ML IV SCH ×2 (12:15→14:30)
[2024-05-23] MEDS ORDERED: Ondansetron 8 MG SoluTab SL ONE (12:15)
[2024-05-23 12:38] LABS: BASOPHILS ABSOLUTE AUTO 0.06 K/mm3 (0.00-0.23); BASOPHILS PERCENT AUTO 1 % (0-2); EOSINOPHILS ABSOLUTE AUTO 0.17 K/mm3 (0.00-0.68); EOSINOPHILS PERCENT AUTO 2 % (0-6); Hematocrit 43.1 % (33.0-51.0); Hemoglobin 14.8 g/dL (11.5-16.0); IMMATURE GRAN ABSOLUTE AUTO 0.02 K/mm3 (0.00-0.10); IMMATURE GRAN PERCENT AUTO 0 % (0-1); LYMPHOCYTES ABSOLUTE AUTO 2.36 K/mm3 (0.84-5.20); LYMPHOCYTES PERCENT AUTO 25 % (21-46); MONOCYTES ABSOLUTE AUTO 0.57 K/mm3 (0.16-1.47); MONOCYTES PERCENT AUTO 6 % (4-13); Mean Corpuscular HGB 29.9 pg (26.0-34.0); Mean Corpuscular HGB Conc 34.3 g/dL (31.5-36.5); Mean Corpuscular Volume 87 fL (80-100); Mean Platelet Volume 11.3 fL (9.1-12.4); NEUTROPHILS ABSOLUTE AUTO 6.18 K/mm3 (1.96-9.15); NEUTROPHILS PERCENT AUTO 66 % (41-73); Platelet Count 214 K/mm3 (150-400); RDW Coefficient Variation 11.6 % (11.7-14.2); Red Blood Cell Count 4.95 M/mm3 (3.80-5.20); White Blood Cell Count 9.36 K/mm3 (4.00-11.30)
[2024-05-23 12:55] LABS: Albumin, Blood 4.2 g/dL (3.4-5.0); Albumin/Globulin Ratio 1.2 (0.8-1.8); Bilirubin, Total 1.9 mg/dL (0.1-1.0); Bun/Creatinine Ratio 25.9 (12.0-20.0); Calcium, Blood 9.1 mg/dL (8.5-10.1); Creatinine, Blood 0.54 mg/dL (0.40-1.00); Globulin, Blood 3.4 g/dL (2.2-4.0); Total Protein, Blood 7.6 g/dL (6.4-8.2)
[2024-05-23] MEDS ORDERED: Ondansetron HCl 2 MG / ML 2ML Vial IV ONE (14:45)
[2024-05-23 14:55] LABS: Base Excess Venous 1.4 mmol/L; Bicarbonate Venous 25.8 mmol/L (24.0-30.0); PCO2 Venous 36.4 mmHg (38-42); pH Blood Venous 7.45 (7.34-7.37)
[2024-05-23 15:45] LABS: Source, Urine Clean Catch
[2024-05-23 15:52] LABS: Appearance, Urine Clear (Clear); Bilirubin, Urine Neg (Neg); Blood, Urine Neg (Neg); Glucose Qualitative, Urine 4+ (Neg); Ketones, Urine 4+ (Neg); Leukocyte Esterase, Urine Neg (Neg); Nitrite, Urine Neg (Neg); Protein, Urine Neg (Neg); Specific Gravity, Urine 1.015 (1.003-1.022); Urobilinogen, Urine NORM (Normal)
[2024-05-23 15:58] LABS: Color, Urine Pale Yellow (P-Yellow)
[2024-05-23 16:30] VITALS: BP 110/70
== END 2024-05-23 16:33 | disposition home or self-care (01) ==
LOC: ER 11:54
PROVIDERS: Emergency Medicine; Physician Assistant
DX: E10.65 Type 1 diabetes mellitus with hyperglycemia (principal); I10 Essential (primary) hypertension; Z79.4 Long term (current) use of insulin; Z88.8 Allergy status to other drugs, medicaments and biological substances; Z79.899 Other long term (current) drug therapy
CPT/HCPCS: 80053; 81003; 82803; 82947; 85025; 96360; 99284-25; J2405; J7030

== ENCOUNTER 2024-08-22 09:52 | Observation (INO) | payer OTHER ==
[~2024-08-22] VITALS: Ht 160 cm; Wt 50.4 kg
[2024-08-22 11:01] LABS: BASOPHILS ABSOLUTE AUTO 0.05 K/mm3 (0.00-0.23); BASOPHILS PERCENT AUTO 1 % (0-2); EOSINOPHILS ABSOLUTE AUTO 0.16 K/mm3 (0.00-0.68); EOSINOPHILS PERCENT AUTO 3 % (0-6); Hematocrit 41.1 % (33.0-51.0); Hemoglobin 13.9 g/dL (11.5-16.0); IMMATURE GRAN ABSOLUTE AUTO 0.01 K/mm3 (0.00-0.10); IMMATURE GRAN PERCENT AUTO 0 % (0-1); LYMPHOCYTES ABSOLUTE AUTO 1.87 K/mm3 (0.84-5.20); LYMPHOCYTES PERCENT AUTO 30 % (21-46); MONOCYTES ABSOLUTE AUTO 0.28 K/mm3 (0.16-1.47); MONOCYTES PERCENT AUTO 5 % (4-13); Mean Corpuscular HGB 30.2 pg (26.0-34.0); Mean Corpuscular HGB Conc 33.8 g/dL (31.5-36.5); Mean Corpuscular Volume 89 fL (80-100); NEUTROPHILS ABSOLUTE AUTO 3.91 K/mm3 (1.96-9.15); NEUTROPHILS PERCENT AUTO 62 % (41-73); Platelet Count 204 K/mm3 (150-400); RDW Coefficient Variation 12.1 % (11.7-14.2); RDW Standard Deviation 39.8 fL (35.1-46.3); Red Blood Cell Count 4.61 M/mm3 (3.80-5.20); White Blood Cell Count 6.28 K/mm3 (4.00-11.30)
[2024-08-22 11:04] LABS: Source, Urine Clean Catch
[2024-08-22 11:05] LABS: Base Excess Venous -5.7 mmol/L; Bicarbonate Venous 19.1 mmol/L (24.0-30.0); PCO2 Venous 45.3 mmHg (38-42); pH Blood Venous 7.28 (7.34-7.37)
[2024-08-22 11:31] LABS: Appearance, Urine Clear (Clear); Bilirubin, Urine Neg (Neg); Blood, Urine Neg (Neg); Glucose Qualitative, Urine 4+ (Neg); Ketones, Urine 4+ (Neg); Leukocyte Esterase, Urine Neg (Neg); Nitrite, Urine Neg (Neg); Protein, Urine Neg (Neg); Specific Gravity, Urine 1.015 (1.003-1.022); Urobilinogen, Urine NORM (Normal)
[2024-08-22 11:35] LABS: Albumin, Blood 4.1 g/dL (3.4-5.0); Albumin/Globulin Ratio 1.2 (0.8-1.8); Bilirubin, Total 1.8 mg/dL (0.1-1.0); Bun/Creatinine Ratio 22.6 (12.0-20.0); Creatinine, Blood 0.66 mg/dL (0.40-1.00); Globulin, Blood 3.4 g/dL (2.2-4.0); Potassium, Blood 4.5 mmol/L (3.5-5.5); Total Protein, Blood 7.5 g/dL (6.4-8.2)
[2024-08-22 12:03] LABS: Color, Urine Pale Yellow (P-Yellow)
[2024-08-22] MEDS ORDERED: Ondansetron 4 MG SoluTab MM ONE (13:10)
[2024-08-22] MEDS ORDERED: Lactated Ringer's 1,000 ML IV ONE ×2 (14:05→14:10)
[2024-08-22] MEDS ORDERED: Prochlorperazine Edisylate 10 mg Vial IV ONE (14:15)
[2024-08-22] MEDS ORDERED: Insulin Glargine-Yfgn 100 Unit/mL 3 ML SYR SC STA (16:05)
[2024-08-22] MEDS ORDERED: FLU VACC TS2024-25(6MOS UP)/PF 45 MCG/0.5 ML SYRINGE IM ONE (16:10)
[2024-08-22 17:25] VITALS: BP 116/76
[2024-08-22] MEDS ORDERED: Insulin Human Lispro 100 Units/ML 3ML Syringe SC SCH ×3 (17:30→18:00)
--- NOTE | 2024-08-22 18:25 | NUR ---
PT ARRIVED IN THE UNIT VIA STRETCHER PT ABLE TO STAND AND TRANSFER TO PCU BED. PT ALERT AND ORIENTED, AMBUALTES INDEPENDENTLY IN THE ROOM. PT IS HERE FOR DKA. VITALS HRR SR 90'S, SBP 116, SATS ABOVE 95% ON RA, AFREBILE. PT REPORTS MILD CHEST PRESSURE AND THAT DR VAZQUEZ IS AWARE. NO NAUSEA/VOMITING UPON ARRIVAL PT HAD DINNER WITH NO ISSUES. LAST CBG 344 PT HAD CARB COUNT INSULIN COVERAGE AND A SLIDING SCALE. PT HAD 9U HUMALOG TOTAL AFTER DINNER. PT DENIES PAIN, REPORTS FEELING TIRED. PT NOW RESTING IN BED, CALLS APPROPRIATELY. CALL LIGHTS IN REACH WILL REPORT TO ONCOMING SHIFT
[2024-08-22] MEDS ORDERED: Ondansetron HCl 2 MG / ML 2ML Vial IV PRN (19:00)
[2024-08-22] MEDS ORDERED: NS 1,000 ML IV SCH (19:00)
[2024-08-22] MEDS ORDERED: Ondansetron 4 MG SoluTab MM PRN (19:25)
[2024-08-22] MEDS ORDERED: NS 500 ML IV SCH (19:25)
[2024-08-22 19:40] VITALS: BP 121/69
--- NOTE | 2024-08-22 20:46 | NUR ---
ASSUMPTION NOTE: THIS RN TO ASSUME CARE OF PATIENT. PATIENT IS ALERT AND ORIENTED X4 AND COOPERATIVE WITH HER CARE. BLOOD SUGAR WAS TAKEN AND PATIENT RECEIVED 3 UNITS PER EMAR. NORMAL SALINE CONTINUES TO INFUSE AND PATIENT WENT TO THE BATHROOM, HEART RATE TOUCHED 150-160'S. PATIENT REPORTED FEELING LIKE HER HEART RATE WAS FAST BUT THAT WAS ALL THAT SHE COULD FEEL. ONCE PATIENT RETURNED TO BED HER HEART RATE WENT BACK DOWN TO 80'S. PATIENT IN BED, CALL LIGHT WITHIN REACH AND BED AT THE LOWEST POSITIN.
[2024-08-23 00:14] VITALS: BP 91/59
[2024-08-23 04:07] VITALS: BP 101/55
--- NOTE | 2024-08-23 04:22 | NUR ---
SHIFT SUMMARY: PATIENT IS ALERT AND ORIENTED X4 AND ACTIVE IN HER CARE, IS ABLE TO MAKE NEEDS KNOWN. IS ON TELE SHOWED SYNUS SAMSONM BEGINNING OF SHIFT, DID SHOOT UP INTO 160'S WHEN GOING TO THE BATHROOM, SEE PREVIOUS NOTE FOR DETAILS AT THE TIME OF NOTE PATIENT IS SHOWING SINUS JAMAL WITH 59 RATE. PATIENT WAS GIVEN INSULIN Q2 THROUGHOUT SHIFT ALONGSIDE SNACKS AND BLOOD SUGARS ARE TRENDING DOWN. PATIENT WAS ABLE TO REST THROUGHOUT SHIFT. THIS RN WILL CONTINUE TO MONITOR UNTIL SHIFT CHANGE AND DAY SHIFT RN ASSUMES CARE.
[2024-08-23 05:12] LABS: BASOPHILS ABSOLUTE AUTO 0.03 K/mm3 (0.00-0.23); BASOPHILS PERCENT AUTO 1 % (0-2); EOSINOPHILS ABSOLUTE AUTO 0.29 K/mm3 (0.00-0.68); EOSINOPHILS PERCENT AUTO 6 % (0-6); Hemoglobin 11.8 g/dL (11.5-16.0); IMMATURE GRAN ABSOLUTE AUTO 0.01 K/mm3 (0.00-0.10); IMMATURE GRAN PERCENT AUTO 0 % (0-1); LYMPHOCYTES ABSOLUTE AUTO 2.44 K/mm3 (0.84-5.20); LYMPHOCYTES PERCENT AUTO 48 % (21-46); MONOCYTES ABSOLUTE AUTO 0.39 K/mm3 (0.16-1.47); MONOCYTES PERCENT AUTO 8 % (4-13); Mean Corpuscular HGB 29.3 pg (26.0-34.0); Mean Corpuscular HGB Conc 32.8 g/dL (31.5-36.5); Mean Corpuscular Volume 89 fL (80-100); Mean Platelet Volume 10.7 fL (9.1-12.4); NEUTROPHILS ABSOLUTE AUTO 1.96 K/mm3 (1.96-9.15); NEUTROPHILS PERCENT AUTO 38 % (41-73); Platelet Count 180 K/mm3 (150-400); RDW Coefficient Variation 12.1 % (11.7-14.2); RDW Standard Deviation 39.8 fL (35.1-46.3); Red Blood Cell Count 4.03 M/mm3 (3.80-5.20); White Blood Cell Count 5.12 K/mm3 (4.00-11.30)
[2024-08-23 05:37] LABS: Anion Gap 8 mmol/L (3-11); Blood Urea Nitrogen 13 mg/dL (8-24); Bun/Creatinine Ratio 23.3 (12.0-20.0); CO2, Blood 26 mmol/L (21-32); Calcium, Blood 8.2 mg/dL (8.5-10.1); Chloride, Blood 111 mmol/L (98-108); Creatinine, Blood 0.56 mg/dL (0.40-1.00); Glomerular Filtration Rate 125 (60-); Glucose, Blood 225 mg/dL (70-99); Magnesium, Blood 1.8 mg/dL (1.6-2.4); Phosphorus, Blood 3.4 mg/dL (2.5-4.9); Potassium, Blood 3.9 mmol/L (3.5-5.5); Sodium, Blood 141 mmol/L (136-145)
[2024-08-23] MEDS ORDERED: Insulin Glargine-Yfgn 100 Unit/mL 3 ML SYR SC SCH (09:00)
[2024-08-23] MEDS ORDERED: Enoxaparin 40 MG/0.4 ML SYR SC SCH (09:00)
--- NOTE | 2024-08-23 12:31 | NUR ---
PT DISCHARGED TO HOME WITH DISCHARGED ORDERS. PT'S CBG WAS RANGIN IN THE 100-180'S, CARB COUNT INSULIN COVERAGE GIVEN WELL LONG ACTING. PT DENIES ANY OTHER ISSUES PRIOR TO DISCHARGE PT ABLE TO SHOWER, NO ISSUES WITH BREAKFAST VITALS HAS BEEN STABLE. FAMILY CAME IN TO RIB STIFFENER AND HEEL DIPPER PT UPON DISCHARGE. ALL BELONGINGS SENT WITH THE PT. ALL NEW MEDICATION AND DISCHARGE INSTRUCTIONS DISCLOSED WITH THE PT, PT VERBALIZED UNDERSTANDING.
== END 2024-08-23 10:17 | disposition home or self-care (01) ==
LOC: ER 09:52 → PCU 16:05
PROVIDERS: Student in an Organized Health Care Education/Training Program; ADMIT Family Medicine
DX: E10.10 Type 1 diabetes mellitus with ketoacidosis without coma (principal); E10.65 Type 1 diabetes mellitus with hyperglycemia; I10 Essential (primary) hypertension; G43.909 Migraine, unspecified, not intractable, without status migrainosus; Z88.8 Allergy status to other drugs, medicaments and biological substances; Z79.4 Long term (current) use of insulin
CPT/HCPCS: 36415; 80053; 80069; 81003; 82803; 82947; 83735; 85025; 96361; 96372; 96374; 99284-25; A9270; G0378; J0780; J1650; J1815; J7030; J7120

== ENCOUNTER 2024-10-05 11:07 | Day surgery (SDC) | payer OTHER ==
[~2024-10-05] VITALS: Ht 160 cm; Wt 57.8 kg
[~2024-10-05 11:07] MED LIST changes: +Lactated Ringer's 1,000 ML IV ONE; +propofoL 50 ML IV ONE
[2024-10-05] MEDS ORDERED: OMEP20ER (11:40)
[2024-10-05] MEDS ORDERED: Lactated Ringer's 1,000 ML IV ONE (11:54)
--- NOTE | 2024-10-05 12:17 | NUR ---
10/05/24 1217 Imelda Swanson PT. DENIES ANY PAIN.
[2024-10-05 16:43] VITALS: BP 124/85
== END 2024-10-05 14:10 | disposition home or self-care (01) ==
LOC: ORSCSDS 11:07
PROVIDERS: Internal Medicine Gastroenterology
PROC: 0DB58ZX Excision of Esophagus, Via Natural or Artificial Opening Endoscopic, Diagnostic (ICD-10-PCS; principal; 2024-10-05 12:30)
PROC: 0D757ZZ Dilation of Esophagus, Via Natural or Artificial Opening (ICD-10-PCS; principal; 2024-10-05 12:30)
PROC: 0DB78ZX Excision of Stomach, Pylorus, Via Natural or Artificial Opening Endoscopic, Diagnostic (ICD-10-PCS; principal; 2024-10-05 12:30)
PROC: 0DB98ZX Excision of Duodenum, Via Natural or Artificial Opening Endoscopic, Diagnostic (ICD-10-PCS; principal; 2024-10-05 12:30)
DX: R13.10 Dysphagia, unspecified (principal); K21.9 Gastro-esophageal reflux disease without esophagitis; K29.70 Gastritis, unspecified, without bleeding; R11.0 Nausea; K59.00 Constipation, unspecified; E10.8 Type 1 diabetes mellitus with unspecified complications; Z96.41 Presence of insulin pump (external) (internal); Z79.899 Other long term (current) drug therapy; Z79.4 Long term (current) use of insulin; Z87.891 Personal history of nicotine dependence
CPT/HCPCS: 82947; 88305; 88342; J2704; J7120

== ENCOUNTER → 2024-11-17 | Outpatient (CLI) | payer OTHER ==
[~2024-11-17] MED LIST changes: -Lactated Ringer's 1,000 ML IV ONE; +OMEP20ER; -propofoL 50 ML IV ONE
== END ==
LOC: LAB SHORT 09:48 → LAB 09:48
DX: R30.0 Dysuria (principal)
CPT/HCPCS: 87086